=== PATIENT | female | born 1945 | race Caucasian/White ===

== ENCOUNTER 2019-02-22 20:29 | Emergency (ER) | payer OTHER ==
[~2019-02-22] VITALS: Ht 162.6 cm; Wt 65.3 kg
[2019-02-22 21:05] VITALS: Ht 162.6 cm; Wt 65.3 kg
[2019-02-22 23:52] VITALS: BP 112/64
== END 2019-02-22 23:52 | disposition home or self-care (01) ==
LOC: ED 20:29
DX: J40 Bronchitis, not specified as acute or chronic (principal); J06.9 Acute upper respiratory infection, unspecified